=== PATIENT | female | born 1990 | race Two or more races ===

== ENCOUNTER 2023-04-17 22:53 | Emergency (ER) | payer OTHER ==
[~2023-04-17] VITALS: Ht 172.7 cm; Wt 59.0 kg
[2023-04-17 22:54] VITALS: BP 128/80; TEMP 98.1
[2023-04-18 00:20] VITALS: O2SAT 99
== END 2023-04-18 00:21 | disposition home or self-care (01) ==
LOC: ER 22:55
DX: F41.9 Anxiety disorder, unspecified (principal); R94.31 Abnormal electrocardiogram [ECG] [EKG]